=== PATIENT | male | born 1955 | race Caucasian/White ===

== ENCOUNTER 2018-08-14 11:35 | Emergency (ER) | payer OTHER ==
[2018-08-14 11:36] VITALS: BMI 26.6
[2018-08-14 12:26] LABS: BASO # 0.01 K/mm3 (0.0-2.0); BASO % 0.1 % (0.0-3.0); EOS # 0.1 (0.0-0.7); EOS % 0.9 % (1.5-5.0); GRAN # 5.19 (1.4-6.5); HEMOGLOBIN 13.9 g/dL (14.0-18.0); LYMPH # 1.2 (1.2-3.4); LYMPH % 17.7 % (22.0-35.0); MEAN CELL VOLUME 86.9 fl (80.0-105.0); MEAN CORPUSCULAR HGB CONC 32.2 g/dl (31.0-37.0); MEAN PLATELET VOLUME 10.6 fl (7.0-11.0); MONO # 0.4 (0.1-0.6); MONO % 5.3 % (1.0-6.0); RBC 4.97 10^6/uL (3.5-6.1); RED CELL DISTRIBUTION WIDTH 12.1 % (11.5-14.5); WHITE BLOOD COUNT 6.8 10^3/uL (4.5-11.0)
--- NOTE | 2018-08-14 12:31 | ED PDOC ---
Arrival/HPI - General Chief Complaint: Dizziness/Lightheaded Time Seen by Provider: 08/14/18 11:42 Historian: Patient, Family (Family helped communicate with patient) - History of Present Illness Narrative History of Present Illness (Text): 08/14/18 12:00 63 M with no significant PMHx presents with cc of sudden dizziness since yesterday, worse with movement of head. Pt reports waking up yesterday morning with sudden dizziness and sweats. Patient notes when he went to sleep he felt a little better, but notes he woke with the same symptoms. Patient states he has never had these symptoms in the past. Patient did not take any medication for relief of symptoms. Family at bedside notes pt was prescribed baby Aspirin, which he has not taken in the past few weeks. Pt denies any current symptoms. Pt denies cold symptoms, headaches, chest pains, nausea, ringing in ears, tingling, weakness, or any other complaints at this time. PMD: [place] Time/Duration: 24 hours (Pt notes symptoms began yesterday morning) Symptom Onset: Sudden Symptom Course: Unchanged Activities at Onset: Light Past Medical History - Provider Review Nursing Documentation Reviewed: Yes - Infectious Disease Hx of Infectious Diseases: None - Cardiac Hx Cardiac Disorders: No - Pulmonary Hx Respiratory Disorders: No - Neurological Hx Neurological Disorder: No - HEENT Hx HEENT Disorder: No - Renal Hx Renal Disorder: No - Endocrine/Metabolic Hx Endocrine Disorders: No - Hematological/Oncological Hx Blood Disorders: No - Integumentary Hx Dermatological Disorder: No - Musculoskeletal/Rheumatological Hx Musculoskeletal Disorders: No - Gastrointestinal Hx Gastrointestinal Disorders: Yes - Genitourinary/Gynecological Hx Genitourinary Disorders: No - Psychiatric Hx Psychophysiologic Disorder: No Hx Substance Use: No - Anesthesia Hx Anesthesia: Yes Hx Anesthesia Reactions: No Hx Malignant Hyperthermia: No Family/Social History - Physician Review Nursing Documentation Reviewed: Yes Family/Social History: Unknown Family HX Smoking Status: Never Smoked Hx Alcohol Use: No Hx Substance Use: No Allergies/Home Meds Allergies/Adverse Reactions: Allergies No Known Allergies Allergy (Verified 08/03/15 10:17) Review of Systems - Physician Review All systems were reviewed & negative as marked: Yes (All other systems negative except that noted in the HPI.) Physical Exam - Physical Exam Narrative Physical Exam (Text): Gen: VS reviewed, alert, well developed, well nourished, nontoxic, mild distress Eye: EOMI, PERRL Neck: no JVD, supple, no adenopathy CV: regular rate, regular rhythm, no rubs,no murmur, S1, S2 Pulm: no distress, clear to auscultation, no wheeze, no rhonchi, breath sounds equal, no rales Abd: soft, nontender, no guarding, no rebound, no rigidity Ext: no edema Skin: good color, no rash, no cyanosis Psych: responds appropriately to questions, normal affect Neuro: oriented x3, CN2-12 intact grossly, motor intact, sensation intact. normal finger to nose, normal heel-freire. steady gait. Vital Signs Reviewed: Yes Vital Signs Temp Pulse Resp BP Pulse Ox 08/14/18 11:40 98.1 F 57 L 18 134/84 98 Temperature: Afebrile Blood Pressure: Normal Pulse: Tachycardic Respiratory Rate: Normal Appearance: Positive for: Well-Appearing, Non-Toxic Pain Distress: None Mental Status: Positive for: Alert and Oriented X 3 Medical Decision Making ED Course and Treatment: 08/14/18 12:00 Impression: 63 M presents with cc of sudden dizziness since yesterday Differential Diagnosis included but are not limited to: Plan: -- EKG -- Labs -- Reassess and disposition Progress Notes: 08/14/18 11:[address] french, neurology, based on the patient presentation a benign cause of vertigo is suspected at this time and patient should be seen for outpatient ENT and neurology follow up. 08/14/18 12:56 patient remained symptom free during Emergency department course, no neuro deficits seen on physical exam. clinically impression is benign positional vertigo - EKG Interpretation EKG Interpretation (Text): 08/14/18 12:58 1144: ekg my read: sinus melony at 58 bpm, nml qrs, nml axis, no acute sttw abn Interpreted by ED Physician: Yes - Scribe Statement The provider has reviewed the documentation as recorded by the Scribe Beronica Menendez All medical record entries made by the Scribe were at my direction and personally dictated by me. I have reviewed the chart and agree that the record accurately reflects my personal performance of the history, physical exam, medical decision making, and the department course for this patient. I have also personally directed, reviewed, and agree with the discharge instructions and disposition. Disposition/Present on Arrival - Present on Arrival Any Indicators Present on Arrival: No History of DVT/PE: No History of Uncontrolled Diabetes: No Urinary Catheter: No History of Decub. Ulcer: No History Surgical Site Infection Following: None - Disposition Have Diagnosis and Disposition been Completed?: Yes Diagnosis: Vertigo Disposition: HOME/ ROUTINE Disposition Time: 12:59 Patient Plan: Discharge Patient Problems: Current Active Problems Problem Status Onset Vertigo Acute Condition: STABLE Discharge Instructions (ExitCare): Vertigo (a Type of Dizziness) Additional Instructions: return for any new or worsening symptoms. follow up with a ear/nose/throat specialist and neurologist. Prescriptions: Meclizine [Antivert] 12.5 mg PO TID #9 tab Referrals: Willie Jones DO [Staff Provider] - Follow up with primary Laly French MD [Staff Provider] - Follow up with primary [facility] [Outside] - Follow up with primary Forms: [employer] (Yoruba), WORK NOTE
[2018-08-14 12:37] LABS: ALB/GLOB RATIO 1.2 (1.1-1.8); ALBUMIN 4.1 g/dL (3.0-4.8); ALT/SGPT 26 U/L (7-56); AST/SGOT 24 U/L (17-59); BLOOD UREA NITROGEN 11 mg/dL (7-21); CALCIUM 9.4 mg/dL (8.4-10.5); GFR NON-AFRICAN AMERICAN > 60
[2018-08-14 13:15] VITALS: RESP 18; TEMP 98.1
[2018-08-14 13:54] VITALS: BP 124/89; PULSE 71; O2SAT 99
--- NOTE | 2018-08-14 17:23 | CARD ---
APPROVED REPORT Date of service: 08/14/2018 EKG Measurement Heart [id number] <Conclusion> Poor data quality, interpretation may be adversely affected Sinus bradycardia Low voltage QRS Borderline ECG
== END 2018-08-14 13:42 | disposition home or self-care (01) ==
LOC: ED 11:35
DX: R42 Dizziness and giddiness (principal)